=== PATIENT | male | born 1960 | race Caucasian/White ===

== ENCOUNTER 2024-02-04 14:42 | Emergency (ER) | payer OTHER ==
[~2024-02-04] VITALS: Ht 180.3 cm; Wt 97.0 kg
[2024-02-04 14:50] VITALS: BP 120/90; PULSE 80; RESP 16; O2SAT 98
[2024-02-04 16:25] VITALS: TEMP 98.1
== END 2024-02-04 16:27 | disposition home or self-care (01) ==
LOC: ER 14:42
DX: M71.21 Synovial cyst of popliteal space [Baker], right knee (principal)
CPT/HCPCS: 93971; 99284

== ENCOUNTER 2024-11-04 14:59 | Outpatient (CLI) | payer OTHER ==
--- NOTE | 2024-11-04 18:02 | RADIOLOGY REPORT ---
PROCEDURE: MR MRI LUMBAR SPINE INDICATION: NUMBNESS AND TINGLING OF RIGHT LOWER EXTREMITY Exam Date: 11/04/2024 03:29 PM COMPARISON: None TECHNIQUE: MRI lumbar spine without intravenous contrast. FINDINGS: Grade 1 anterolisthesis of L5 on S1. There are degenerative endplate changes including modic endpla te changes with anterior and lateral osteophytes throughout the lumbar spine. The visualized distal s kulwant cord and conus medullaris are within normal limits. The conus medullaris appears to terminate within normal limits. The visualized retroperitoneal and paraspinal soft tissues are unremarkable. D iffuse epidural lipomatosis. The following axial levels are detailed below: T12-L1: There is a mild circumferential disc bulge. No significant central canal or neuroforaminal s tenosis. L1-L2: There is a moderate circumferential disc bulge complicated by facet arthropathy associated w ith mild to moderate bilateral neuroforaminal stenosis. Central canal measures 8 mm. L2-L3: There is a severe circumferential disc bulge complicated by facet arthropathy narrowing the central canal to 6 mm with associated moderate to severe bilateral neuroforaminal stenosis. L3-L4: There is a severe circumferential disc bulge complicated by facet arthropathy narrowing the central canal to 7 mm with associated moderate to severe bilateral neuroforaminal stenosis. L4-L5: There is a moderate circumferential disc bulge complicated by facet arthropathy associated w ith moderate to severe bilateral neuroforaminal stenosis. No significant central canal stenosis. L5-S1: There is a moderate circumferential disc bulge complicated by facet arthropathy associated wi th moderate to severe bilateral neuroforaminal stenosis right greater than left. No significant centr al canal stenosis. IMPRESSION: 1. Multilevel degenerative disease complicated by epidural lipomatosis. Grade 1 anterolisthesis of L4 on L5. Moderate to severe central canal stenosis L1-2 through L3-4. Neural foraminal stenosis as ab ove. HS:Y
== END 2024-11-04 23:59 | disposition home or self-care (01) ==
LOC: MRI02 14:59
PROVIDERS: ATTEND Nurse Practitioner Family
DX: M51.17 Intervertebral disc disorders with radiculopathy, lumbosacral region (principal); R20.0 Anesthesia of skin; R20.2 Paresthesia of skin; M51.15 Intervertebral disc disorders with radiculopathy, thoracolumbar region; M48.061 Spinal stenosis, lumbar region without neurogenic claudication
CPT/HCPCS: 72148